=== PATIENT | female | born 1990 | race Caucasian/White ===

== ENCOUNTER 2017-04-17 07:18 | Inpatient (IN) | payer OTHER ==
[~2017-04-17] VITALS: Ht 154.9 cm; Wt 89.1 kg
[~2017-04-17 07:18] MED LIST: DOCU-131 PO; IBUP-1222 PO; LEVO75TA PO; PREN-53 PO
[2017-04-17 07:58] VITALS: BP 107/58
[2017-04-17 08:51] LABS: AMNISURE POSITIVE (NEGATIVE)
[2017-04-17] MEDS ORDERED: OXYTOCIN 30U/ 0.9% NaCL 500ML 500 ML IV ONE (10:32)
[2017-04-17] MEDS ORDERED: ONDANSETRON 2MG/ML, 2ML IVPush PRN (11:00)
[2017-04-17] MEDS ORDERED: FENTANYL PF 100 MCG/2ML IV PRN (11:00)
[2017-04-17] MEDS ORDERED: CALCIUM CARBONATE 500 MG TAB.CHEW PO PRN (11:00)
[2017-04-17] MEDS ORDERED: NEWBORN KIT ONE (11:14)
[2017-04-17 11:34] LABS: BASOPHILS # (AUTO) 0.03 x10^3/uL (0-0.1); BASOPHILS % (AUTO) 0 % (0-1); EOSINOPHILS # (AUTO) 0.03 x10^3/uL (0-0.4); EOSINOPHILS % (AUTO) 0 % (1-7); LYMPHOCYTES # (AUTO) 1.49 x10^3/uL (1-3.4); LYMPHOCYTES % (AUTO) 11 % (22-44); MD NO; MEAN CORPUSCULAR HEMOGLOBIN 32.3 pg (27.0-34.8); MEAN CORPUSCULAR HGB CONC 33.7 g/dL (32.4-35.8); MEAN CORPUSCULAR VOLUME 95.9 fL (80-100); MEAN PLATELET VOLUME 8.3 fL (7.4-10.4); MONOCYTES % (AUTO) 7 % (2-9); NEUTROPHILS # (AUTO) 11.06 x10^3/uL (1.8-6.8); NEUTROPHILS % (AUTO) 82 % (42-75); PLATELET COUNT 224 x10^3/uL (130-400); RED BLOOD COUNT 3.96 x10^6/uL (3.82-5.3); RED CELL DISTRIBUTION WIDTH 15.4 % (9.6-15.2)
[2017-04-17] MEDS ORDERED: OXYTOCIN 30U/ 0.9% NaCL 500ML 500 ML IV PRN (13:56)
[2017-04-17] MEDS ORDERED: OXYTOCIN 30U/ 0.9% NaCL 500ML 500 ML ONE (13:59)
[2017-04-17] MEDS: LACTATED RINGERS 1,000 ML IV SCH ×3 (14:02→21:54)
[2017-04-17] MEDS ORDERED: MISOPROSTOL 200 MCG TABLET ONE (19:08)
[2017-04-17] MEDS ORDERED: LIDOCAINE 1%, 20ML ONE (19:08)
[2017-04-17] MEDS ORDERED: FENTANYL PF 100 MCG/2ML ONE ×3 (19:08→21:09)
[2017-04-17] MEDS: FENTANYL PF 100 MCG/2ML IVPush PRN ×3 (19:12→21:24)
[2017-04-17] MEDS ORDERED: FENTANYL/BUPIV./NS/PF 250 ML EPIDCONT ONE (22:15)
[2017-04-17] MEDS ORDERED: BUPIVACAINE 0.25% ONE ×3 (22:15→23:14)
[2017-04-17] MEDS ORDERED: FENTANYL/BUPIV./NS/PF 250 ML EPIDCONT SCH (22:34)
[2017-04-17] MEDS ORDERED: LACTATED RINGERS 1,000 ML IVBOLUS PRN (23:00)
[2017-04-18] MEDS: LACTATED RINGERS 1,000 ML IV SCH ×2 (03:58→06:34)
[2017-04-18] MEDS: OXYTOCIN 30U/ 0.9% NaCL 500ML 500 ML IV SCH ×2 (05:44→15:44)
[2017-04-18] MEDS ORDERED: ACETAMINOPHEN 325 MG TABLET PO PRN ×2 (06:00)
[2017-04-18] MEDS ORDERED: OXYcodone/APAP 5/325MG TABLET PO PRN ×2 (06:00)
[2017-04-18] MEDS ORDERED: ONDANSETRON 2MG/ML, 2ML IV PRN (06:00)
[2017-04-18] MEDS ORDERED: METHYLERGONOVINE 0.2 MG/ML IM PRN (06:00)
[2017-04-18] MEDS ORDERED: MISOPROSTOL 200 MCG TABLET PR PRN (06:00)
[2017-04-18] MEDS: PRENATAL VIT/IRON/FA 1 EACH TABLET PO SCH (09:00)
[2017-04-18 09:10] VITALS: BP 105/63
[2017-04-18 13:15] VITALS: BP 98/68
[2017-04-18] MEDS: IBUPROFEN 600 MG TABLET PO PRN ×2 (16:07→23:38)
[2017-04-18 20:15] VITALS: BP 106/64
[2017-04-18] MEDS: DOCUSATE 100 MG CAPSULE PO PRN (23:38)
[2017-04-18 23:41] VITALS: BP 104/62
[2017-04-19] MEDS: OXYTOCIN 30U/ 0.9% NaCL 500ML 500 ML IV SCH (01:44)
[2017-04-19 04:30] VITALS: BP 100/53
[2017-04-19] MEDS: IBUPROFEN 600 MG TABLET PO PRN ×2 (05:39→12:39)
[2017-04-19 07:05] VITALS: BP 93/55
[2017-04-19] MEDS: PRENATAL VIT/IRON/FA 1 EACH TABLET PO SCH (09:12)
[2017-04-19] MEDS: DOCUSATE 100 MG CAPSULE PO PRN (09:12)
== END 2017-04-19 15:05 | disposition home or self-care (01) | DRG 775 ==
LOC: LDOP 07:18 → LDIP 10:50 → 2NW 04-18 09:08
PROVIDERS: ADMIT Obstetrics & Gynecology Maternal & Fetal Medicine; ATTEND Obstetrics & Gynecology Maternal & Fetal Medicine
PROC: 10E0XZZ Delivery of Products of Conception, External Approach (ICD-10-PCS; principal; 2017-04-18)
PROC: 0KQM0ZZ Repair Perineum Muscle, Open Approach (ICD-10-PCS; 2017-04-18)
PROC: 3E0R3BZ Introduction of Anesthetic Agent into Spinal Canal, Percutaneous Approach (ICD-10-PCS; 2017-04-18)
PROC: 00HU33Z Insertion of Infusion Device into Spinal Canal, Percutaneous Approach (ICD-10-PCS; 2017-04-18)
DX: O42.92 Full-term premature rupture of membranes, unspecified as to length of time between rupture and onset of labor (principal); O70.1 Second degree perineal laceration during delivery; O77.0 Labor and delivery complicated by meconium in amniotic fluid; Z37.0 Single live birth; Z3A.38 38 weeks gestation of pregnancy
CPT/HCPCS: 36415; 84112; 85025; 86850; 86900; 89060; J3010; J2590; J7120; Q0114

== ENCOUNTER 2019-04-26 11:13 | Emergency (ER) | payer OTHER ==
[~2019-04-26] VITALS: Ht 154.9 cm; Wt 84.4 kg
--- NOTE | 2019-04-26 11:51 | NUR ---
REPORT RECEIVED FROM YU SHARMA.
--- NOTE | 2019-04-26 11:52 | NUR ---
THIS IS A 28 YO F SENT FROM [facility]/ C/O N/D AND INTERMITTENT EPIGASTRIC PAIN 08/16 X5 DAYS. REPORTS LIQUID BLACK STOOL. PT DENIES VOMITING/PAIN W/ URINATION. PT CHANGED IN TO GOWN. URINE COLLECTED AND SENT TO LAB. CONNECTED TO MONITORING. VS STABLE. NADN. RESTING ON GURNEY W/ CALL LIGHT IN REACH. AWAITING ED EVAL.
[2019-04-26 12:22] LABS: MICROSCOPIC INDICATED
[2019-04-26 12:51] LABS: CULTURE INDICATED? YES
[2019-04-26 13:10] VITALS: BP 97/56
[2019-04-26 13:29] LABS: BASOPHILS # (AUTO) 0.03 x10^3/uL (0-0.1); BASOPHILS % (AUTO) 0 % (0-1); EOSINOPHILS % (AUTO) 2 % (1-7); LYMPHOCYTES # (AUTO) 1.58 x10^3/uL (1-3.4); LYMPHOCYTES % (AUTO) 22 % (22-44); MD NO; MEAN CORPUSCULAR HEMOGLOBIN 31.4 pg (27.0-34.8); MEAN CORPUSCULAR HGB CONC 33.9 g/dL (32.4-35.8); MEAN CORPUSCULAR VOLUME 92.6 fL (80-100); MEAN PLATELET VOLUME 8.1 fL (7.4-10.4); MONOCYTES # (AUTO) 0.71 x10^3/uL (0.2-0.8); MONOCYTES % (AUTO) 10 % (2-9); NEUTROPHILS # (AUTO) 4.72 x10^3/uL (1.8-6.8); NEUTROPHILS % (AUTO) 66 % (42-75); PLATELET COUNT 306 x10^3/uL (130-400); RED BLOOD COUNT 4.57 x10^6/uL (3.82-5.3); RED CELL DISTRIBUTION WIDTH 12.9 % (9.6-15.2)
[2019-04-26] MEDS ORDERED: MAALOX/HYOSCYAMINE/LIDOCAINE 45 ML BTL PO ONE (13:30)
[2019-04-26] MEDS ORDERED: MAALOX/HYOSCYAMINE/LIDOCAINE 45 ML BTL ONE (13:40)
[2019-04-26 13:42] LABS: ALANINE AMINOTRANSFERASE 99 U/L (12-78); ANION GAP 7 mmol/L (5-15); CALCIUM 8.9 mg/dL (8.5-10.1); CHLORIDE 107 mmol/L (98-107); CREATININE 0.83 mg/dL (0.55-1.02)
--- NOTE | 2019-04-26 13:42 | NUR ---
PT MEDICATED PER EMAR.
[2019-04-26 13:44] LABS: ALKALINE PHOSPHATASE 101 U/L (45-117); BILIRUBIN,TOTAL 0.5 mg/dL (0.2-1.0); TOTAL PROTEIN 8.3 g/dL (6.4-8.2)
--- NOTE | 2019-04-26 15:33 | NUR ---
PT DRESSED, WAITING FOR DC PAPERWORK.
--- NOTE | 2019-04-26 15:57 | NUR ---
Patient given discharge instructions and they have confirmed that they understand the instructions. Patient ambulatory with steady gait.
== END 2019-04-26 15:56 | disposition home or self-care (01) ==
LOC: ED 12:10
DX: N30.00 Acute cystitis without hematuria (principal); R11.0 Nausea; R19.7 Diarrhea, unspecified
CPT/HCPCS: 36415; 80053; 81001; 83690; 85025; 87086; 99283